=== PATIENT | female | born 1950 | race Caucasian/White ===

== ENCOUNTER 2024-09-04 07:43 | Day surgery (SDC) | payer MEDICARE, OTHER, SELFPAY ==
[2024-08-05 12:44] LABS: Anion Gap 5 (5-15); BUN 26 mg/dL (7-18); BUN/Creat Ratio 24.1 RATIO (10-20); Chloride 109 mmol/L (98-107); Creatinine, Serum 1.08 mg/dL (0.55-1.02); EST Glomerular Filtration Rate 53 mL/min (>60); Est Glom Filt Rate - Afr Amer 64 mL/min (>60); Glucose 97 mg/dL (74-106); Potassium 4.9 mmol/L (3.5-5.1); Sodium Level 140 mmol/L (136-145)
[2024-08-05 13:03] LABS: Hemoglobin 14.1 g/dL (12.0-15.0); Mean Corpuscular Hgb 29.9 pg (27.0-32.0); Mean Corpuscular Volume 93.4 fL (81-99); Mean Platelet Vol. 10.5 fl (6.2-12.0); Platelet Count 258 K/mm3 (150-450); RBC Distribution Width CV 13.2 % (11.6-14.6); RBC Distribution Width SD 45.4 fl (35.1-43.9); Red Blood Count 4.71 M/mm3 (4.2-5.4); White Blood Count 6.3 K/mm3 (4.4-11.0)
[2024-09-04] VITALS (23 sets, daily range): BP systolic 96–183; BP diastolic 52–93; PULSE 72–122; RESP 16–18; TEMP 36.2–36.4; O2SAT 90–100; BMI 37.8
--- NOTE | 2024-09-04 08:03 | PCM.PRE.AN2 ---
ASA Classification* ASA Classification ASA Classification: 3 Assessment & Plan Anesthesia* Anesthesia Assessment Anesthesia Assessment: Discussed sedation and/or anesthesia options, risks, benefits, and alternatives with patient/parents/legal guardian/POA. Questions invited. The patient/parents/legal guardian/POA seems to understand and agrees to proceed with anesthesia plan. Reviewed the physical assessment, medical history, allergy history and patient home medications list prior to surgery/procedure/anesthetic and documented any changes. Performed airway and anesthesia risk assessments. Anesthesia Type Anesthesia Type: General Anesthesia Focused Assessment* Airway Assessment Mouth opens: >3 cm Mallampati Score: II Focused Labs Anesthesia Preop lab: CBC WBC 6.3 K/mm3 (4.4-11.0) 08/05/24 11:49 RBC 4.71 M/mm3 (4.2-5.4) 08/05/24 11:49 Hgb 14.1 g/dL (12.0-15.0) 08/05/24 11:49 Hct 44.0 % (37-47) 08/05/24 11:49 Plt Count 258 K/mm3 (150-450) 08/05/24 11:49 CHEMISTRY Potassium 4.9 mmol/L (3.5-5.1) 08/05/24 11:49 Sodium 140 mmol/L (136-145) 08/05/24 11:49 BUN 26 mg/dL (7-18) H 08/05/24 11:49 Creatinine 1.08 mg/dL (0.55-1.02) H 08/05/24 11:49 Glucose 97 mg/dL (74-106) 08/05/24 11:49 COAG Pre-Assessment Diagnosis/Proposed Procedure Planned Operative Procedure(s): BILAT BREAST REDUCTION Anesthesia History 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 When Was Last Pacemaker Check QUESTION #4 FULL TEXT: You/Your Family Experience fever (hyperthermia) with Anesthesia Last Oral Intake Last Oral intake: Last Oral Intake NPO since Meds taken in AM with sips of water? Meds patient instructed to take am of surgery PONV PONV - bisque tile burner: PONV - bisque tile burner Female Yes 08/22/24 11:01 HX of Motion Sickness No 08/22/24 11:01 HX of N/V After Surgery No 08/22/24 11:01 Non-Smoker Yes 08/22/24 11:01 Duration of Surgery greater Yes 08/22/24 11:01 than 60 minutes Number of Risk Factors 3 08/22/24 11:01 PONV Score Moderate Risk 08/22/24 11:01 Height & Weight Height & Weight: Anesthesia: Height & Weight Height 5 ft 2.5 in 08/05/24 10:32 Respiratory Assessment Respiratory Assessment - bisque tile burner: Respiratory Tract Infection Hx - bisque tile burner Hx Respiratory Tract Infection No 08/22/24 11:01 STOP Sleep Apnea STOP Sleep Apnea - bisque tile burner: STOP Sleep Apnea - bisque tile burner Hx Hypertension Yes: CONTROLLED WITH MEDS 08/22/24 11:01 Hx Sleep Apnea No 08/22/24 11:01 CPAP BIPAP Do you snore loudly (louder Yes 08/22/24 11:01 than talking or can be heard Do you often feel tired/ No 08/22/24 11:01 fatigued/ sleepy during daytime? Has anyone observed you stop Yes 08/22/24 11:01 breathing during sleep? STOP Results Positive 08/22/24 11:01 QUESTION #5 FULL TEXT : Do you snore loudly (louder than talking or can be heard through closed doors)? 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 Specify any problems Hx of Preganancy in last 3 No 08/22/24 11:01 Months Nurse Filling Out Transfusion DSCHRIBER 08/22/24 11:01 & Questions: Date: 08/22/24 08/22/24 11:01 Time: 11:03 08/22/24 11:01 Patient unable to answer at this time (ie. confused, unrespo /Reproduction History /Reproductive History - bisque tile burner: /Reproductive Hx- bisque tile burner Hx Now No 08/22/24 11:01 Gestational Age (in weeks): EDC: Hx Hx Para Hx Section SAB No 08/22/24 11:01 Active Medications Active Medications: Current Medications Generic Name Dose Route Start Last Admin Trade Name Freq PRN Reason Stop Dose Admin Cefazolin Sodium 2 gm/ N/A 20 mls @ 400 mls/hr 09/04/24 09:25 IV 09/04/24 09:27 PREOP ONE [facility] Medical History Gastric reflux Wears glasses Post-menopausal Cancer Depression Arthritis Bladder disease Sepsis DVT (deep venous thrombosis) Easy bruising Back pain Injury of head and neck TIA (transient ischemic attack) Vertigo History of IBS Shortness of breath on exertion Non-smoker Leg cramps History of echocardiogram History of stress test Cardiology follow-up encounter History of atrial fibrillation History of CHF (congestive heart failure) History of heart attack PFO (patent foramen ovale) History of osteoporosis History of hypertension History of glaucoma History of anxiety History of arthritis Home Medications ?Medication ?Instructions ?Recorded ?Last Taken ?Type apixaban 5 mg tablet 5 mg PO BID 06/18/24 Unknown History atorvastatin 10 mg tablet 10 mg PO DAILY 06/18/24 Unknown History denosumab 60 mg/mL subcutaneous 60 mg subcut [id number] 06/18/24 Unknown History syringe (Prolia) escitalopram oxalate 20 mg tablet 20 mg PO DAILY 06/18/24 Unknown History (Lexapro) metoprolol tartrate 50 mg tablet 50 mg PO DAILY 06/18/24 Unknown History (Lopressor) multivitamin 1 tab PO DAILY 06/18/24 Unknown History pantoprazole 40 mg granules 40 mg PO DAILY 06/18/24 Unknown History delayed-release for susp in packet (Protonix) acetaminophen 325 mg capsule 650 mg PO Q4H PRN pain 08/22/24 Unknown History calcium carbonate (Calcium 600) 1,200 mg PO DAILY 08/22/24 Unknown History latanoprost 0.005 % eye drops 1 drp ophthalmic (eye) QHS 08/22/24 Unknown History oxybutynin chloride 15 mg 15 mg PO QHS 08/22/24 Unknown History tablet,extended release 24 hr cephalexin 500 mg capsule 500 mg PO BID #14 caps 08/26/24 Unknown Rx Allergy/AdvReac Type Severity Reaction Status Date / Time gabapentin Allergy Mild Other Verified 08/26/24 10:23 ibandronate sodium (From Allergy Mild Swelling Verified 08/26/24 10:23 Boniva) topiramate (From Topamax) Allergy Mild Other Verified 08/26/24 10:23 Family History Mother Arthritis Father Heart disease Surgical History History of cardiac catheterization Hx of lithotripsy Hx of colonoscopy Hx of total knee arthroplasty Hx of inguinal hernia repair History of knee replacement History of section History of carpal tunnel surgery History of back surgery Social History Smoking Status: Never smoker alcohol intake: never substance use type: does not use additional social history: pt denies vaping, denies marijuana , denies edibles, denies aspirin use, uses ibuprofen as needed Review of Systems (Anesthesia) ROS Narrative System reviewed and no additional complaints, except as documented.
[2024-09-04] MEDS: Lactated Ringers 1,000 ML 15 ML IV (08:19)
--- NOTE | 2024-09-04 09:25 | BR_PTH ---
PATIENT: CARMEN DIALLO [place] [facility] [id number] AGE/SX: 74/F ROOM: RE09/04/[address]: Dr. Namita Page MD : 1950 BED: DIS: 09/04/2024 SPEC #: [id number] RECD: 09/04/24 14:45 STATUS: DONNIE REFrank #: [id number] STEPHON: 09/04/24 09:[address]: Namita Page DEPT: SURGICAL PATHOLOGY RECD BY: Radha Ritchie ENTERED: 09/05/24 07:32 SP TYPE: MAMOPLASTY OTHR DR: Dr. Te Nobles MD Tissues: A - Left breast, NOS B - Right breast, NOS Procedures: Surgery Specimen Level IV HEADER OPERATION: Bilateral breast reduction PRE-OP DIAGNOSIS: Chronic back pain, breast hypertrophy, breast ptosis TISSUE SUBMITTED: A- Left breast tissue - 426gm, B- Right breast tissue- 560gm MICROSCOPIC DIAGNOSIS A. Left breast tissue, breast reduction mammoplasty: Fatty benign breast tissue with focal fibrocystic changes. Skin - no pathologic diagnosis. B. Right breast tissue, breast reduction mammoplasty: Fatty benign breast tissue with focal fibrocystic changes. Skin - no pathologic diagnosis. KARINA. 09/08/2024 MICROSCOPIC DESCRIPTION Slides are reviewed. GROSS DESCRIPTION A - Received in fixative is one container labeled with the patient's name and designated left breast tissue - 426gm weighed in OR. The specimen consists of multiple pieces of fibroadipose tissue with a few of the pieces showing osorio-white skin measuring in aggregate 20.0 x 18.0 x 3.0 cm. No skin lesion is identified. Sections reveal yellow adipose cut surfaces mixed with scant fibrous areas. No mass lesion is identified. Senior Business Manager sections are submitted in six cassettes. Cassette 1 contains the skin piece. B - Received in fixative is one container labeled with the patient's name and designated right breast tissue - 560gm weighed in OR. The specimen consists of multiple pieces of fibroadipose tissue with a few of the pieces showing osorio-white skin measuring in aggregate 22.0 x 18.0 x 5.0 cm. No skin lesion is identified. Sections reveal yellow adipose cut surfaces mixed with scant fibrous areas. No mass lesion is identified. Senior Business Manager sections are submitted in six cassettes. Cassette 1 contains the skin piece. / KARINA: 09/05/2024 TC:5 CPT:40718q8
--- NOTE | 2024-09-04 09:25 | PCM.HP.BLA ---
History and Physical Date of Admission: 09/04/24 The patient is examined and there are no changes to the H&P dated 08/08/2024. Informed consent was obtained for bilateral breast reduction. She is marked in the preop holding area prior to surgery. Assessment & Plan Assessment/Plan (1) Chronic back pain: (2) Breast hypertrophy: (3) Breast ptosis: PLAN: Plan Patient for bilateral breast reduction.
[2024-09-04] MEDS: Cefazolin 2 GM in Syringe IV (10:28)
[2024-09-04] MEDS: EPINEPHrine Nasal 0.1% 30 ML Bottle OPERA.SITE (10:51)
[2024-09-04] MEDS: Methylene Blue 1% 100 MG/10 ML VIAL (10:51)
[2024-09-04] MEDS: Gentamicin 80 MG/2 ML Vial (11:30)
[2024-09-04] MEDS: Cefazolin 1 GM/50 ML BAG IV (14:18)
[2024-09-04] MEDS: Bupivacaine 0.25% 30 ML Vial (14:47)
--- NOTE | 2024-09-04 15:02 | DCINST_ITS ---
Discharge Instructions Dressing / Incision Additional Dressing/Incision Instructions:: Follow instructions given in the office. Follow Up Care Please Follow Up With: Namita Page MD When: In 1 week Test Results: Test results from this visit will be discussed in further detail at your follow- up appointment, if applicable. Discharge Plan Admission Attending Provider: Namita Page Primary Care Provider: Te Nobles Instructions Print Language: Somali Discharge Orders/Prescriptions Prescriptions: No Action apixaban 5 mg tablet 5 mg PO BID atorvastatin 10 mg tablet 10 mg PO DAILY escitalopram oxalate [Lexapro] 20 mg tablet 20 mg PO DAILY metoprolol tartrate [Lopressor] 50 mg tablet 50 mg PO DAILY multivitamin Tablet 1 tab PO DAILY pantoprazole [Protonix] [address] for susp in packet 40 mg PO DAILY Prolia 60 mg/mL syringe 60 mg subcut [id number] cephalexin 500 mg capsule 500 mg PO BID Qty: 14 0RF acetaminophen 325 mg capsule 650 mg PO Q4H PRN (Reason: pain) oxybutynin chloride 15 mg tablet extended release 24hr 15 mg PO QHS calcium carbonate [Calcium 600] 600 mg calcium (1,500 mg) tablet 1,200 mg PO DAILY latanoprost 0.005 % drops 1 drp ophthalmic (eye) QHS Referrals / Follow Up: Te Nobles MD [Primary Care Provider] - Disposition Disposition (needs filled in before D/C Order can be placed): Home, Self Care
--- NOTE | 2024-09-04 15:04 | OP.PCM_ITS ---
Problems Associated Problem List Diagnoses (1) Chronic back pain: (2) Breast hypertrophy: Operative Report (Standard) Operative Information Surgery/Procedure Performed: Bilateral breast reduction (R-560 g; L?426 g) Surgeon: Namita Page Date of Procedure: 09/04/24 Procedure Start Time: 10:51 Procedure Stop Time: 14:59 Pre-Operative Diagnosis: Bilateral mammary hypertrophy Chronic back pain Post-Operative Diagnosis: Same Select all DRAINS/GRAFTS/IMPLANTS that apply: None Type of Anesthesia: General Estimated Blood Loss: 50 cc Specimen collected: Yes Description of specimen(s) removed: Breast tissue Description of surgery: The patient presents today for bilateral breast reduction. The procedure been thoroughly reviewed with the patient including the expected pre-, intra, and postoperative course. The potential risks of surgery were reviewed which include but are not exclusive of bleeding, infection, pain, numbness, asymmetry, scar tissue, skin necrosis, the need for further surgery, DVT, and even . She is marked in the preop holding area prior to surgery. The patient is brought to the operating room and placed under general anesthesia in the supine position. Care is taken to pad all pressure points, insert a Infante catheter, sequential compression stockings, and a warming blanket. The breast and chest are prepped and draped in the usual sterile fashion. We initia lly began with incising all the incisions. Following this, the pedicle is de- epithelialized. The medial and lateral inferior aspects of the breast are removed using argon coagulation. Following this, the pedicle from the upper flap and dissection continued cephalad maintaining the upper flap at least 2 cm in thickness. Following this, the pedicle was trimmed in order to allow it to comfortably sit beneath the upper flap. The wound is irrigated with antibiotic solution and checked for meticulous hemostasis. Following which the breast is then infolded and tacked together using silk suture and skin clips. With a satisfactory size and shape noted, we will begin to close the wound. A few [id number] Vicryl sutures are placed along the inframammary crease. Following this, a 3 oh STRATAFIX suture is used to approximate the incisions in 3 layers. Approximately 4-1/2 cm above the inframammary crease, the nipple areola is brought out through an opening and tacked in place with nylon suture. Following this, all incisions are closed with a running subcuticular strata fix suture. Quarter percent plain Marcaine is then injected along the incisions. Xeroform gauze is placed on the incision of the lung with fluff gauze and the patient is placed in a sports bra. She tolerated the procedure well was taken to the recovery area in an awakening in stable condition. Needle and sponge counts are correct. Surgical Findings: As expected Ski Instructor front desk officer: Yes Pond Worker: Brianna Larry Tasks completed by or first assist registered nurse: Closing and Retracting Complications Complications: No Admit VTE Documentation VTE Mechan Device Prophylaxis: SCD's
--- NOTE | 2024-09-04 15:07 | PCM.POST.ANE ---
Anesthesia: Postop Eval I Current Vital Signs Temperature: 97.5 F Pulse Rate: 112 (pain medication given) Blood Pressure: 183/93 (pain medication given ) Respiratory Rate: 16 Pulse Ox: 99 Oxygen Delivery Method: Simple Mask Oxygen Flow Rate (L/min): 6 Assessment Airway patent: Yes Spontaneous unlabored respirations: Yes Mental status: Awake and Calm nausea: No Vomiting: No Anesthesia Complication: No Fluid Hydration Crystalloid volume administer (ml): 1,400 Total IV fluid infused: 1,400 Progress Note Anesthesia document: Postop Eval 1 completed: Yes
--- NOTE | 2024-09-05 08:44 | POSTOPAN2_ITS ---
Anesthesia Postop Eval I Sum Postop Eval Completion status Anesthesia document: Postop Eval 1 completed: Yes Anesthesia Postop Eval I Summary Anesthesia Postop Eval I Summary: Anesthesia Postop Eval I: Assessment Summary Airway patent Yes 09/04/24 15:09 TOBACCO CLOTH RECLAIMER.[email or web address] Spontaneous unlabored Yes 09/04/24 15:09 TOBACCO CLOTH RECLAIMER.[place] respirations Mental status Awake,Calm 09/04/24 15:09 TOBACCO CLOTH RECLAIMER.SHAHRZADOBTesfaye nausea No 09/04/24 15:09 TOBACCO CLOTH RECLAIMER.[place] Vomiting No 09/04/24 15:09 TOBACCO CLOTH RECLAIMER.[place] Anesthesia Postop Eval I: Fluid Summary Crystalloid volume administer 1,400 09/04/24 15:09 TOBACCO CLOTH RECLAIMER.SHAHRZADOBY (ml) Colloids volume administered ( ml) Blood Product volume administered (ml) Total IV fluid infused 1,400 09/04/24 15:09 TOBACCO CLOTH RECLAIMER.[place] Anesthesia Postop Eval I: Summary Notes Anesthesia Complication No 09/04/24 15:09 TOBACCO CLOTH RECLAIMER.[place] Anesthesia Complication Comment: Post-operative progress note Anesthesia: Postop Eval II Evaluation Mental status: Awake Pain Level: 0 nausea: No Vomiting: No
--- NOTE | 2024-09-05 08:44 | PCM.POSTANE2 ---
Anesthesia Postop Eval I Sum Postop Eval Completion status Anesthesia document: Postop Eval 1 completed: Yes Anesthesia Postop Eval I Summary Anesthesia Postop Eval I Summary: Anesthesia Postop Eval I: Assessment Summary Airway patent Yes 09/04/24 15:09 SPECIAL EDUCATION EDUCATIONAL ASSISTANT.[email or web address] Spontaneous unlabored Yes 09/04/24 15:09 SPECIAL EDUCATION EDUCATIONAL ASSISTANT.[place] respirations Mental status Awake,Calm 09/04/24 15:09 SPECIAL EDUCATION EDUCATIONAL ASSISTANT.SHAHRZADOBTesfaye nausea No 09/04/24 15:09 SPECIAL EDUCATION EDUCATIONAL ASSISTANT.[place] Vomiting No 09/04/24 15:09 SPECIAL EDUCATION EDUCATIONAL ASSISTANT.[place] Anesthesia Postop Eval I: Fluid Summary Crystalloid volume administer 1,400 09/04/24 15:09 SPECIAL EDUCATION EDUCATIONAL ASSISTANT.SHAHRZADOBY (ml) Colloids volume administered ( ml) Blood Product volume administered (ml) Total IV fluid infused 1,400 09/04/24 15:09 SPECIAL EDUCATION EDUCATIONAL ASSISTANT.[place] Anesthesia Postop Eval I: Summary Notes Anesthesia Complication No 09/04/24 15:09 SPECIAL EDUCATION EDUCATIONAL ASSISTANT.[place] Anesthesia Complication Comment: Post-operative progress note Anesthesia: Postop Eval II Evaluation Mental status: Awake Pain Level: 0 nausea: No Vomiting: No
== END 2024-09-04 20:28 | disposition home or self-care (01) ==
LOC: SDC 07:44 → AC 07:45
PROVIDERS: PCP Family Medicine; Referring Provider Plastic Surgery; Visit Provider Plastic Surgery
PROC: 0H0U0ZZ Alteration of Left Breast, Open Approach (ICD-10-PCS; CPT 19318; principal; 2024-09-04 09:10)
DX: N60.11 Diffuse cystic mastopathy of right breast (principal); M54.9 Dorsalgia, unspecified; G89.29 Other chronic pain; N64.81 Ptosis of breast; N62 Hypertrophy of breast; Z79.01 Long term (current) use of anticoagulants; Z79.899 Other long term (current) drug therapy; I10 Essential (primary) hypertension; Z86.73 Personal history of transient ischemic attack (TIA), and cerebral infarction without residual deficits; N60.12 Diffuse cystic mastopathy of left breast
CPT/HCPCS: 19318; 00402; 36415; 80048; 85027; 88305; J7120; J2405